=== PATIENT | male | born 1985 | race African-American/Black ===

== ENCOUNTER 2019-07-20 07:07 | Emergency (ER) | payer BC, OTHER ==
--- NOTE | 2019-07-20 08:03 | RAD ---
2 view chest: [07/20/2019] Comparison:None available HISTORY: Productive cough FINDINGS: No lobar consolidation or alveolar edema is seen. Frontal examination appears grossly unrem arkable. On the lateral view there is mild increased linear density within the anterior aspect of the chest overlying the cardiac silhouette, significance uncertain. This may be on the basis of mild infiltrate, volume loss, or scar. IMPRESSION: Subtle increased linear densities are noted on the lateral examination anteriorly overlyi ng the cardiac silhouette, etiology uncertain. This could potentially be related to infectious pneumonitis in the proper clinical setting. Recommend follow-up PA and lateral imaging of the chest f ollowing treatment in 3-4 weeks.
== END 2019-07-20 08:27 | disposition home or self-care (01) ==
LOC: ERS 07:07
DX: J18.9 Pneumonia, unspecified organism (principal); F17.210 Nicotine dependence, cigarettes, uncomplicated
CPT/HCPCS: 71046

== ENCOUNTER 2020-06-24 14:15 | Emergency (ER) | payer BC, OTHER ==
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
== END 2020-06-24 15:27 | disposition home or self-care (01) ==
LOC: ERS 14:15
DX: S06.0X9A Concussion with loss of consciousness of unspecified duration, initial encounter (principal); S00.83XA Contusion of other part of head, initial encounter; R07.89 Other chest pain; F17.210 Nicotine dependence, cigarettes, uncomplicated; X93.XXXA Assault by handgun discharge, initial encounter
CPT/HCPCS: 70450